=== PATIENT | male | born 1980 | race Caucasian/White ===

== ENCOUNTER 2019-03-09 15:54 | Emergency (ER) | payer OTHER ==
[2019-03-09] MEDS ORDERED: KETOROLAC TROMETHAMINE 60 MG/2 ML VIAL IM ONE (16:04)
--- NOTE | 2019-03-09 16:04 | PDOC ---
Rapid Medical Evaluation Time Seen by Provider: 03/09/19 16:03 Medical Evaluation: Allergies Allergy/AdvReac Type Severity Reaction Status Date / Time No Known Allergies Allergy Verified 03/09/19 16:03 03/09/19 16:03 I have performed a brief in-person evaluation of this patient. The patient presents with a chief complaint of: acute on chronic back pain Pertinent physical exam findings: FAROM. I have ordered the following: toradol The patient will proceed to the ED for further evaluation. Discharge Disposition - Diagnosis Back pain - Referrals - Patient Instructions - Post Discharge Activity
[2019-03-09 16:08] VITALS: BP 132/83; PULSE 71; TEMP 97.3; BMI 27.3
--- NOTE | 2019-03-09 16:40 | PDOC ---
History of Present Illness - General Chief Complaint: Pain, Acute Stated Complaint: LOWER BACK PAIN Time Seen by Provider: 03/09/19 16:03 - History of Present Illness Initial Comments: 03/09/19 16:38 38-year-old male without comorbidities presents for evaluation of neck pain with bilateral upper extremity weakness times one month and lower back pain which radiates into the right hip. He was seen at an urgent care placed on Flexeril and meloxicam he comes to the emergency room for further evaluation and treatment at the urging of the provider from urgent care. Past History - Past Medical History Allergies/Adverse Reactions: Allergies Allergy/AdvReac Type Severity Reaction Status Date / Time No Known Allergies Allergy Verified 03/09/19 16:03 Home Medications: Ambulatory Orders Naproxen Sodium [Aleve] 440 mg PO BID 03/09/19 - Suicide/Smoking/Psychosocial Hx Smoking History: Never smoked Hx Alcohol Use: No Drug/Substance Use Hx: No Review of Systems - Review of Systems Constitutional: No: Fever : No: Incontinence Musculoskeletal: Yes: Back Pain, Neck Pain Neurological: Yes: Weakness. No: Numbness, Paresthesia *Physical Exam - Vital Signs Last Vital Signs Temp Pulse Resp BP Pulse Ox 97.3 F L 71 20 132/83 97 03/09/19 16:03 03/09/19 16:03 03/09/19 16:03 03/09/19 16:03 03/09/19 16:03 - Physical Exam Comments: 03/09/19 16:38 Cervical spine skin color and temperature are normal. Range of motion is slightly decreased. There is moderate paracervical musculature spasm and tenderness. 5 out of 5 strength including belt lacer strength in both upper extremities. Negative Spurling maneuver which only causes neck pain without radicular symptoms. No gross sensorimotor deficits. Is neurovascularly intact. Lumbar spine skin color and temperature are normal. Range of motion is slightly decreased. There is no midline tenderness. Moderate right and left-sided paralumbar musculature spasm and tenderness. 5 out of 5 strength in bilateral lower extremities without gross sensorimotor deficits negative straight leg raise test bilaterally. Thighs and calves are soft and nontender. Is neurovascularly intact. Medical Decision Making - Medical Decision Making 03/09/19 16:39 I will have the patient continue with meloxicam and Flexeril and have him follow -up with orthopedic spine surgery. No emergent intervention is needed. *DC/Admit/Observation/Transfer Diagnosis at time of Disposition: Back pain, Cervical strain - Discharge Dispostion Disposition: HOME Condition at time of disposition: Stable Decision to Admit order: No - Referrals Referrals: Greg Aguayo MD [Staff Physician] - - Patient Instructions Printed Discharge Instructions: DI for Cervical Muscle Strain, Low Back Pain, DI for Low Back Pain Additional Instructions: Please continue with the meloxicam and cyclobenzaprine as directed. Return to the emergency room should symptoms worsen. Please follow-up with orthopedic spine in one to 2 days for further evaluation and treatment options. - Post Discharge Activity
== END 2019-03-09 16:58 | disposition home or self-care (01) ==
LOC: JERFT 15:54
PROC: 3E0233Z Introduction of Anti-inflammatory into Muscle, Percutaneous Approach (ICD-10-PCS; principal; 2019-03-09)
DX: S16.1XXA Strain of muscle, fascia and tendon at neck level, initial encounter (principal); X58.XXXA Exposure to other specified factors, initial encounter; Y93.89 Activity, other specified; Y92.89 Other specified places as the place of occurrence of the external cause; Y99.8 Other external cause status
CPT/HCPCS: 96372; 99281-25